=== PATIENT | male | born 1990 | race Caucasian/White ===

== ENCOUNTER 2017-10-08 08:11 | Emergency (ER) | payer MEDICAID ==
[~2017-10-08] VITALS: Ht 167.6 cm; Wt 58.4 kg
[2017-10-08] MEDS ORDERED: Cipro HC otic suspension 10ML bottle RIGHT EAR ONE (09:00)
[2017-10-08] MEDS ORDERED: CIPR10DR RIGHT EAR (09:02)
[2017-10-08] MEDS ORDERED: fluconazole 150mg tablet PO ONE (09:50)
[2017-10-08] MEDS ORDERED: fluconazole 100mg tablet PO ONE (09:50)
[2017-10-08] MEDS ORDERED: LACT1CAP65 PO (09:51)
[2017-10-08 10:11] VITALS: BP 126/71
== END 2017-10-08 10:11 | disposition home or self-care (01) ==
LOC: ER 08:12
DX: H60.91 Unspecified otitis externa, right ear (principal); Z56.0 Unemployment, unspecified; Z79.899 Other long term (current) drug therapy
CPT/HCPCS: 99283

== ENCOUNTER 2017-10-26 08:39 | Emergency (ER) | payer MEDICAID ==
[~2017-10-26] VITALS: Ht 167.6 cm; Wt 55.2 kg
[~2017-10-26 08:39] MED LIST: LACT1CAP65 PO
[2017-10-26] MEDS ORDERED: dexamethasone 0.5 mg/5ml unit-dose oral solution PO STA (10:09)
[2017-10-26] MEDS ORDERED: ketorolac trometh inj. 60 MG/2 ML VIAL IM ONE (10:10)
[2017-10-26] MEDS ORDERED: dexamethasone sod phosphate 4mg/ml inj. PO STA (10:12)
[2017-10-26] MEDS ORDERED: CIPR10DR RIGHT EAR (10:16)
[2017-10-26 10:27] VITALS: BP 141/82
== END 2017-10-26 10:28 | disposition home or self-care (01) ==
LOC: ER 08:39
DX: H60.91 Unspecified otitis externa, right ear (principal); Z56.0 Unemployment, unspecified; Z79.899 Other long term (current) drug therapy
CPT/HCPCS: 96372; 99283; J1100; J1885; J8540

== ENCOUNTER 2019-02-06 21:52 | Emergency (ER) | payer MEDICAID, OTHER ==
[~2019-02-06] VITALS: Ht 167.6 cm; Wt 59.0 kg
[2019-02-06 22:02] VITALS: BP 117/66
[2019-02-06 22:27] LABS: BASOPHILS # (AUTO) 0.1 X10'3 (0-0.2); BASOPHILS % (AUTO) 1.1 % (0-1); EOSINOPHILS # (AUTO) 0.1 X10'3 (0-0.9); EOSINOPHILS % (AUTO) 2.1 % (0-6); HEMATOCRIT 39.7 % (42.0-52.0); HEMOGLOBIN 13.4 g/dl (14.0-17.9); LYMPHOCYTES # (AUTO) 2.2 X10'3 (1.1-4.8); LYMPHOCYTES % (AUTO) 30.3 % (21-51); MEAN CORPUSCULAR HEMOGLOBIN 30.1 PG (27.0-31.0); MEAN CORPUSCULAR HGB CONC 33.8 g/dL (33.0-36.5); MEAN CORPUSCULAR VOLUME 88.9 FL (78-98); MEAN PLATELET VOLUME 7.1 FL (7.4-10.4); MONOCYTES # (AUTO) 0.4 X10'3 (0-0.9); MONOCYTES % (AUTO) 5.9 % (2-12); NEUTROPHILS # (AUTO) 4.4 X10'3 (1.8-7.7); NEUTROPHILS % (AUTO) 60.6 % (42-75); PLATELET COUNT 341 X10'3 (140-440); RED BLOOD COUNT 4.47 X10'6 (4.70-6.10); RED CELL DISTRIBUTION WIDTH 13.4 % (11.5-14.5); WHITE BLOOD COUNT 7.3 X10'3 (4.5-11.0)
[2019-02-06 22:41] LABS: ALANINE AMINOTRANSFERASE 22 U/L (12-78); ALBUMIN 3.4 G/DL (3.4-5.0); ALBUMIN/GLOBULIN RATIO 0.9 (1.1-1.5); ALKALINE PHOSPHATASE 104 IU/L (46-116); ANION GAP 5 (8-16); ASPARTATE AMINO TRANSFERASE 12 U/L (10-37); BILIRUBIN,TOTAL 0.3 MG/DL (0.1-1.0); BLOOD UREA NITROGEN 16 MG/DL (7-18); CALCIUM 9.6 MG/DL (8.5-10.1); CHLORIDE 104 MMOL/L (99-107); CREATININE 0.94 MG/DL (0.60-1.10); GLUCOSE 87 MG/DL (70-104); POTASSIUM 3.9 MMOL/L (3.5-5.1); SODIUM 143 MMOL/L (135-145); TOTAL PROTEIN 7.1 G/DL (6.4-8.2); eGFR > 90 ML/MIN
[2019-02-06] MEDS ORDERED: FLO0.4C PO (22:46)
[2019-02-06] MEDS ORDERED: ONDA8TAB13 PO (22:46)
[2019-02-06] MEDS ORDERED: tamsulosin 0.4mg capsule PO SCH (22:50)
[2019-02-06] MEDS ORDERED: tamsulosin 0.4mg capsule PO ONE (22:50)
[2019-02-06] MEDS ORDERED: ondansetron 4mg rapidly disintigrating tab PO ONE (22:50)
[2019-02-06 23:17] LABS: CLARITY,URINE SLIGHTLY CLOUDY (Clear); COLOR,URINE YELLOW (Yellow); GLUCOSE, URINE NEGATIVE (Neg); KETONES,URINE NEGATIVE (Neg); LEUKOCYTE ESTERASE ,URINE NEGATIVE (Neg); NITRITES, URINE NEGATIVE (Neg); OCCULT BLOOD,URINE NEGATIVE (Neg); PH,URINE 7.5 (4.8-8.0); PROTEIN,URINE NEGATIVE (Neg)
[2019-02-06 23:23] LABS: UA COLLECTION TYPE CLN CATCH MIDSTREAM
[2019-02-06 23:24] LABS: AMORPHOUS PHOSPHATES 2+; BACTERIA,URINE FEW /HPF (Neg); RBC,URINE NONE SEEN /HPF (0-2); SQUAMOUS EPITHELIAL CELL,UR FEW /LPF (FEW); WBC,URINE 0-4 /HPF (0-4)
== END 2019-02-06 23:04 | disposition home or self-care (01) ==
LOC: ER 21:53
DX: N20.0 Calculus of kidney (principal); Z87.442 Personal history of urinary calculi; F12.90 Cannabis use, unspecified, uncomplicated; F17.200 Nicotine dependence, unspecified, uncomplicated; Z79.899 Other long term (current) drug therapy; Z56.0 Unemployment, unspecified
CPT/HCPCS: 36415; 80053; 81001; 85025; 85610; 99283

== ENCOUNTER 2020-03-27 07:37 | Emergency (ER) | payer MEDICAID, OTHER ==
[~2020-03-27] VITALS: Ht 170.2 cm; Wt 59.1 kg
[~2020-03-27 07:37] MED LIST changes: +ONDA8TAB13 PO
[2020-03-27] MEDS ORDERED: ketorolac trometh. 30mg/ml inj. IM ONE (08:00)
[2020-03-27 08:33] LABS: CLARITY,URINE CLOUDY (Clear); COLOR,URINE YELLOW (Yellow); GLUCOSE, URINE NEGATIVE (Neg); KETONES,URINE NEGATIVE (Neg); LEUKOCYTE ESTERASE ,URINE TRACE (Neg); NITRITES, URINE NEGATIVE (Neg); OCCULT BLOOD,URINE NEGATIVE (Neg); PROTEIN,URINE NEGATIVE (Neg); UROBILINOGEN,URINE 0.2 E.U/dL (0.2-1.0)
[2020-03-27 08:34] LABS: UA COLLECTION TYPE CLN CATCH MIDSTREAM
[2020-03-27 08:41] LABS: AMORPHOUS URATES 3+; BACTERIA,URINE FEW /HPF (Neg); MUCUS STRANDS NONE SEEN /LPF (Neg); RBC,URINE 0-2 /HPF (0-2); SQUAMOUS EPITHELIAL CELL,UR FEW /LPF (FEW); WBC,URINE 0-4 /HPF (0-4)
[2020-03-27] MEDS ORDERED: IBUP-1985 PO (09:40)
[2020-03-27 09:56] VITALS: BP 118/79
== END 2020-03-27 09:59 | disposition home or self-care (01) ==
LOC: ER 07:37
DX: M54.5 Low back pain (principal); F12.90 Cannabis use, unspecified, uncomplicated; Z56.0 Unemployment, unspecified; Z79.899 Other long term (current) drug therapy
CPT/HCPCS: 81001; 87088; 96372; 99283; J1885

== ENCOUNTER 2021-03-18 02:01 | Emergency (ER) | payer MEDICAID ==
[~2021-03-18] VITALS: Ht 167.6 cm; Wt 59.1 kg
[~2021-03-18 02:01] MED LIST changes: +IBUP-1985 PO
[2021-03-18 02:04] VITALS: BP 131/86
== END 2021-03-18 07:18 | disposition left against medical advice (07) ==
LOC: ER 02:02
DX: S01.01XA Laceration without foreign body of scalp, initial encounter (principal); Z53.21 Procedure and treatment not carried out due to patient leaving prior to being seen by health care provider; X58.XXXA Exposure to other specified factors, initial encounter; Y93.89 Activity, other specified; Y92.89 Other specified places as the place of occurrence of the external cause; Y99.8 Other external cause status

== ENCOUNTER 2021-10-18 21:57 | Emergency (ER) | payer MEDICAID ==
[~2021-10-18] VITALS: Ht 167.6 cm; Wt 63.6 kg
[2021-10-18 22:01] VITALS: BP 127/63
[2021-10-18 22:51] LABS: BASOPHILS # (AUTO) 0.1 X10'3 (0-0.2); BASOPHILS % (AUTO) 0.5 % (0-1); EOSINOPHILS # (AUTO) 0.1 X10'3 (0-0.9); EOSINOPHILS % (AUTO) 0.8 % (0-6); HEMATOCRIT 45.7 % (42.0-52.0); HEMOGLOBIN 15.4 g/dl (14.0-17.9); LYMPHOCYTES # (AUTO) 1.9 X10'3 (1.1-4.8); LYMPHOCYTES % (AUTO) 13.5 % (21-51); MEAN CORPUSCULAR HEMOGLOBIN 30.7 PG (27.0-31.0); MEAN CORPUSCULAR HGB CONC 33.8 g/dL (33.0-36.5); MEAN CORPUSCULAR VOLUME 90.9 FL (78-98); MEAN PLATELET VOLUME 7.9 FL (7.4-10.4); MONOCYTES # (AUTO) 0.9 X10'3 (0-0.9); NEUTROPHILS # (AUTO) 11.2 X10'3 (1.8-7.7); NEUTROPHILS % (AUTO) 79.2 % (42-75); PLATELET COUNT 294 X10'3 (140-440); RED BLOOD COUNT 5.02 X10'6 (4.70-6.10); RED CELL DISTRIBUTION WIDTH 13.7 % (11.5-14.5); WHITE BLOOD COUNT 14.2 X10'3 (4.5-11.0)
[2021-10-18] MEDS ORDERED: ketorolac tromethamine 15mg/ml inj. IV ONE (22:55)
[2021-10-18 22:56] LABS: CLARITY,URINE CLOUDY (Clear); GLUCOSE, URINE NEGATIVE (Neg); KETONES,URINE TRACE mg/dl (Neg); LEUKOCYTE ESTERASE ,URINE NEGATIVE (Neg); NITRITES, URINE NEGATIVE (Neg); OCCULT BLOOD,URINE LARGE (Neg); PH,URINE 5.5 (4.8-8.0); PROTEIN,URINE 30 mg/dl (Neg)
[2021-10-18 22:57] LABS: UA COLLECTION TYPE VOIDED
[2021-10-18 22:58] LABS: ALANINE AMINOTRANSFERASE 20 U/L (12-78); ALBUMIN 4.4 G/DL (3.4-5.0); ALBUMIN/GLOBULIN RATIO 1.3 (1.1-1.5); ALKALINE PHOSPHATASE 79 IU/L (46-116); ANION GAP 6 (8-16); ASPARTATE AMINO TRANSFERASE 13 U/L (10-37); BILIRUBIN,TOTAL 0.4 MG/DL (0.1-1.0); BLOOD UREA NITROGEN 16 MG/DL (7-18); BUN/CREATININE RATIO 13.7 (5.4-32.0); CALCIUM 9.5 MG/DL (8.5-10.1); CHLORIDE 102 MMOL/L (99-107); CREATININE 1.17 MG/DL (0.60-1.10); GLUCOSE 119 MG/DL (70-104); POTASSIUM 4.6 MMOL/L (3.5-5.1); SODIUM 138 MMOL/L (135-145); TOTAL CARBON DIOXIDE 30.2 MMOL/L (24-32); TOTAL PROTEIN 7.7 G/DL (6.4-8.2); eGFR 72 ML/MIN
[2021-10-18 22:58] LABS: COLOR,URINE DARK YELLOW (Yellow)
[2021-10-18] MEDS ORDERED: ondansetron/PF 4mg/2ml inj IV ONE (23:00)
[2021-10-18] MEDS ORDERED: normal saline 1000ML IV soln IVB ONE (23:00)
[2021-10-18] MEDS ORDERED: ketorolac trometh. 30mg/ml inj. IV ONE (23:00)
[2021-10-18 23:08] LABS: BACTERIA,URINE 1+ /HPF (Neg); MUCUS STRANDS MODERATE /LPF (Neg); RBC,URINE 20-50 /HPF (0-2); SQUAMOUS EPITHELIAL CELL,UR FEW /LPF (FEW)
[2021-10-18] MEDS ORDERED: HYDROmorphone 1 mg/ml syringe IM ONE (23:20)
[2021-10-18] MEDS ORDERED: HYDROmorphone 1 mg/ml syringe IV ONE (23:25)
[2021-10-19] MEDS ORDERED: TADA20TA PO (00:41)
[2021-10-19] MEDS ORDERED: ONDA4TAB12 PO (00:41)
[2021-10-19] MEDS ORDERED: HYDR-3965 PO (00:41)
[2021-10-19] MEDS ORDERED: KETO10TA2 PO (00:41)
== END 2021-10-19 01:00 | disposition home or self-care (01) ==
LOC: ER 21:58
DX: N20.1 Calculus of ureter (principal); R10.31 Right lower quadrant pain; R31.9 Hematuria, unspecified; F12.90 Cannabis use, unspecified, uncomplicated; Z87.442 Personal history of urinary calculi; Z56.0 Unemployment, unspecified; Z79.899 Other long term (current) drug therapy
CPT/HCPCS: 36415; 74176; 80053; 81001; 85025; 87088; 96374; 96375; 99284; J1170; J1885; J2405; J7030

== ENCOUNTER 2022-04-09 11:27 | Emergency (ER) | payer MEDICAID ==
[~2022-04-09] VITALS: Ht 170.2 cm; Wt 61.4 kg
[~2022-04-09 11:27] MED LIST changes: +KETO10TA2 PO; +ONDA4TAB12 PO; +TADA20TA PO
[2022-04-09 11:49] VITALS: BP 138/87
[2022-04-09] MEDS ORDERED: diphenhydrAMINE 25mg capsule PO ONE (11:55)
[2022-04-09] MEDS ORDERED: triamcinolone acetonide 40mg/ml inj IM ONE (11:55)
[2022-04-09] MEDS ORDERED: EPIN0.3P3 IM (12:36)
== END 2022-04-09 12:59 | disposition home or self-care (01) ==
LOC: ER 11:27
DX: T63.444A Toxic effect of venom of bees, undetermined, initial encounter (principal); F17.200 Nicotine dependence, unspecified, uncomplicated; F12.90 Cannabis use, unspecified, uncomplicated; Z56.0 Unemployment, unspecified; Y92.89 Other specified places as the place of occurrence of the external cause
CPT/HCPCS: 96372; 99283; J3301; Q0163

== ENCOUNTER 2022-04-10 08:40 | Emergency (ER) | payer MEDICAID ==
[~2022-04-10] VITALS: Ht 170.2 cm; Wt 61.4 kg
[~2022-04-10 08:40] MED LIST changes: +EPIN0.3P3 IM
[2022-04-10 09:14] VITALS: BP 121/72
== END 2022-04-10 09:27 | disposition home or self-care (01) ==
LOC: ER 08:40
DX: T63.441A Toxic effect of venom of bees, accidental (unintentional), initial encounter (principal); M79.89 Other specified soft tissue disorders; F15.10 Other stimulant abuse, uncomplicated; Z79.899 Other long term (current) drug therapy; Y92.89 Other specified places as the place of occurrence of the external cause; F12.10 Cannabis abuse, uncomplicated; Z56.0 Unemployment, unspecified
CPT/HCPCS: 99282

== ENCOUNTER 2025-07-23 05:56 | Outpatient (CLI) | payer MEDICAID ==
[~2025-07-23 05:56] MED LIST changes: -IBUP-1985 PO; +IBUP600T52 PO; +ONDA-243 PO; +ONDA-245 PO; -ONDA4TAB12 PO; -ONDA8TAB13 PO
[2025-07-23] MEDS ORDERED: LIDOcaine 1% 30ml preserv. free vial ONE (06:31)
[2025-07-23] MEDS ORDERED: iohexol 300 MG/1 ML 50ml polymer ONE (06:31)
[2025-07-23] MEDS ORDERED: GADOTERATE MEGLUMINE 7.5 MMOL/15 ML VIAL IV ONE (06:31)
[2025-07-23] MEDS ORDERED: LIDOcaine 1%/PF 5ML 10 MG/ML VIAL ONE (06:31)
--- NOTE | 2025-07-23 08:20 | RADIOLOGY REPORT ---
C-ARM FLUOROSCOPY: PROCEDURE: Right shoulder MRI arthrogram FLUOROSCOPY TIME: 0.1 Air Kerma: 1 mgy FINDINGS: Spot intraoperative C arm radiographs demonstrating right shoulder MRI arthrogram. IMPRESSION: Please refer to surgical report for detailed findings.
--- NOTE | 2025-07-23 11:34 | RADIOLOGY REPORT ---
CLINICAL INDICATION: PAIN IN RIGHT SHOULDER COMPARISON: None TECHNIQUE: Multiplanar, multi-sequence MRI of the right shoulder was performed using intra-articular contrast. Contrast: None INTERPRETATION: Glenohumeral joint: The joint is appropriately distended with intra-articular contrast. There is no fracture or bone marrow edema. The alignment is normal. There is no focal cartilage defect. Acromioclavicular joint: The acromoclavicular joint is narrowed with capsular hypertrophy. There is a type 2 acromion. Rotator cuff and bursae: There is supraspinatus tendinosis. The infraspinatus, teres minor and subscapularis tendons are intact. There is no muscle atrophy. There is no subacromial subdeltoid bursal fluid. Biceps tendon and glenoid labrum: The biceps tendon is normal in appearance. There is a tear of the anterior superior glenoid labrum. There is blunting of the anterior inferior labrum compatible with degeneration. IMPRESSION: 1. Supraspinatus tendinosis. No full-thickness rotator cuff tear. 2. Tear of the anterior superior glenoid labrum. 3. AC joint arthrosis.
== END 2025-07-23 23:59 | disposition home or self-care (01) ==
LOC: RAD 05:56
PROVIDERS: ATTEND Nurse Practitioner Family
DX: S43.431A Superior glenoid labrum lesion of right shoulder, initial encounter (principal); M19.011 Primary osteoarthritis, right shoulder; M25.511 Pain in right shoulder; M75.81 Other shoulder lesions, right shoulder; F17.210 Nicotine dependence, cigarettes, uncomplicated; Z91.030 Bee allergy status; X58.XXXA Exposure to other specified factors, initial encounter; Y93.89 Activity, other specified; Y92.89 Other specified places as the place of occurrence of the external cause; Y99.8 Other external cause status
CPT/HCPCS: 23350; 73221; 77002; A9575; J2003; J3490; Q9967